=== PATIENT | female | born 1945 | race Caucasian/White ===

== ENCOUNTER 2024-11-23 07:10 | Day surgery (SDC) | payer OTHER ==
[~2024-11-23 07:10] MED LIST: INDERAL LA80 MG; SYNTHROID100 MCG
[2024-11-23] MEDS ORDERED: fentaNYL CITRATE 50 MCG/ML AMPUL IV PUSH ONE (11:00)
[2024-11-23] MEDS ORDERED: DIPHENHYDRAMINE HCL 50 MG/ML VIAL 1ML IV ONE (11:00)
[2024-11-23] MEDS ORDERED: ONDANSETRON HCL 2 MG/ML VIAL IV ONE (11:00)
[2024-11-23] MEDS ORDERED: MIDAZOLAM HCL 2 MG/2 ML VIAL IV ONE (11:00)
== END 2024-11-23 11:45 | disposition home or self-care (01) ==
LOC: AMB-ENDOS 07:10
PROVIDERS: ATTEND Colon & Rectal Surgery
DX: D12.0 Benign neoplasm of cecum (principal); K59.00 Constipation, unspecified; K63.5 Polyp of colon